=== PATIENT | male | born 1945 | race Caucasian/White ===

== ENCOUNTER 2017-08-24 13:33 | Observation (INO) | payer MEDICARE ==
[~2017-08-24] VITALS: Ht 180.3 cm; Wt 113.0 kg
[2017-08-24 13:57] LABS: BASOPHILS % (AUTO) 0.8 % (0.0-5.0); EOSINOPHILS % (AUTO) 9.1 % (0.0-8.0); HEMATOCRIT 45.2 % (42-54); MEAN CORPUSCULAR HEMOGLOBIN 33.5 pg (27.0-33.0); MEAN CORPUSCULAR VOLUME 93.1 fL (79-99); MONOCYTES % (AUTO) 12.4 % (3.0-13.0); NEUTROPHILS % (AUTO) 54.7 % (40.0-77.0); NUCLEATED RED BLOOD CELLS 0.1 % (0.0-0.19); PLATELET COUNT (AUTO) 275 K/uL (130-400); RED BLOOD CELL COUNT(AUTO) 4.85 MIL/uL (4.50-6.20); RED CELL DISTRIBUTION WIDTH 13.7 % (11.0-15.5); WHITE BLOOD COUNT (AUTO) 6.3 K/uL (4.8-10.8)
[2017-08-24 14:07] LABS: CREATININE 1.4 mg/dL (0.5-1.5); POTASSIUM 4.3 mmol/L (3.5-5.1)
[2017-08-24 14:11] LABS: BILIRUBIN,TOTAL 0.4 mg/dL (0.2-1.0); TOTAL PROTEIN, SERUM 6.8 g/dL (6.0-8.3)
[2017-08-24 14:38] LABS: INR 0.97 (0.85-1.15); PARTIAL THROMBOPLASTIN TIME 23.6 SEC (26.3-35.5); PROTHROMBIN TIME 10.2 SEC (9.6-11.6)
[2017-08-24 17:04] LABS: APPEARANCE,URINE Clear (CLEAR); BILIRUBIN,URINE Negative (NEGATIVE); COLOR,URINE Dark Yellow (YELLOW); GLUCOSE, URINE (UA) Negative (NEGATIVE); KETONES,URINE Trace mg/dL (NEGATIVE); LEUKOCYTE ESTERASE ,URINE Trace (NEGATIVE); NITRATE,URINE Negative (NEGATIVE); OCCULT BLOOD,URINE Negative (NEGATIVE); PH,URINE 6.5 (5.0-8.0); PROTEIN,URINE Negative (NEGATIVE)
[2017-08-24 17:45] LABS: BACTERIA,URINE Rare /HPF (None Seen); RBC,URINE 0-1 /HPF (0-1); SQUAMOUS EPITHELIAL CELL,UR Few /HPF (0-2)
[2017-08-24 17:46] LABS: MUCUS,URINE Rare LPF (None Seen)
[2017-08-25] MEDS ORDERED: ACETAMINOPHEN 325 MG TAB PO PRN (01:45)
[2017-08-25 05:46] LABS: EOSINOPHILS % (AUTO) 8.7 % (0.0-8.0); HEMATOCRIT 44.6 % (42-54); MEAN CORPUSCULAR HEMOGLOBIN 32.9 pg (27.0-33.0); MEAN CORPUSCULAR HGB CONC 34.9 g/dL (32.0-36.0); MEAN CORPUSCULAR VOLUME 94.3 fL (79-99); MONOCYTES % (AUTO) 14.2 % (3.0-13.0); NEUTROPHILS % (AUTO) 51.1 % (40.0-77.0); PLATELET COUNT (AUTO) 258 K/uL (130-400); RED BLOOD CELL COUNT(AUTO) 4.73 MIL/uL (4.50-6.20); RED CELL DISTRIBUTION WIDTH 13.7 % (11.0-15.5); WHITE BLOOD COUNT (AUTO) 6.7 K/uL (4.8-10.8)
[2017-08-25 05:55] LABS: CREATININE 1.4 mg/dL (0.5-1.5); POTASSIUM 3.8 mmol/L (3.5-5.1)
[2017-08-25 06:11] LABS: HEMOGLOBIN A1C 5.7 % (4.0-6.0)
[2017-08-25] MEDS ORDERED: ASPIRIN 325MG EC TAB 325 MG TABLET.DR PO SCH (09:00)
[2017-08-25] MEDS ORDERED: MECLIZINE HCL 25 MG TABLET PO SCH (09:00)
[2017-08-25] MEDS ORDERED: GADOBENATE DIMEGLUMINE 20 ML IV ONE (13:16)
[2017-08-25] MEDS ORDERED: GADOBENATE DIMEGLUMINE 10 ML IV ONE (13:19)
[2017-08-25] MEDS ORDERED: ASPIRIN 325MG EC TAB 325 MG TABLET.DR PO ONE (14:01)
[2017-08-25 15:20] VITALS: BP 150/79
[2017-08-25] MEDS ORDERED: MECLIZINE HCL 25 MG TABLET PO PRN (15:45)
[2017-08-25] MEDS ORDERED: HYDRALAZINE HCL 20 MG/ML VIAL IV PRN (15:45)
[2017-08-25] MEDS: ATORVASTATIN CALCIUM 20 MG TABLET PO SCH (16:30)
[2017-08-25] MEDS ORDERED: DILT120T15 PO (19:54)
[2017-08-25] MEDS ORDERED: ASCO10007 PO (19:54)
[2017-08-25] MEDS ORDERED: OMEP20TA25 PO (19:54)
[2017-08-25] MEDS ORDERED: VITA150T PO (19:54)
[2017-08-25] MEDS ORDERED: FLUT1DIS5 IH (19:54)
[2017-08-25] MEDS ORDERED: ATOR40TA69 PO (19:54)
[2017-08-25] MEDS ORDERED: MULT-1192 PO (19:54)
[2017-08-25] MEDS ORDERED: TIOT18CA3 IH (19:54)
[2017-08-25] MEDS ORDERED: FISH1CAP49 PO (19:55)
[2017-08-25] MEDS ORDERED: UBID300C PO (19:55)
[2017-08-25] MEDS ORDERED: CETI10TA86 PO (19:55)
[2017-08-25 20:36] VITALS: BP 147/78
[2017-08-26 00:03] VITALS: BP 145/65
[2017-08-26 03:41] VITALS: BP 141/78
[2017-08-26] MEDS ORDERED: ASPIRIN 81MG TAB.CHEW PO SCH (09:00)
[2017-08-26 09:23] VITALS: BP 116/64
[2017-08-26] MEDS: ATORVASTATIN CALCIUM 20 MG TABLET PO SCH (10:11)
[2017-08-26] MEDS ORDERED: ASPI-1005 PO (11:40)
[2017-08-26] MEDS ORDERED: MECL-111 PO (11:40)
== END 2017-08-26 14:00 | disposition home or self-care (01) ==
LOC: EDH 13:33 → EDHIP 17:30 → 3DH 08-25 15:02
PROVIDERS: ADMIT Internal Medicine Nephrology; ATTEND Internal Medicine Nephrology
DX: R42 Dizziness and giddiness (principal); R26.0 Ataxic gait; I12.9 Hypertensive chronic kidney disease with stage 1 through stage 4 chronic kidney disease, or unspecified chronic kidney disease; N18.3 Chronic kidney disease, stage 3 (moderate); H11.31 Conjunctival hemorrhage, right eye; E78.5 Hyperlipidemia, unspecified; E66.9 Obesity, unspecified; F10.10 Alcohol abuse, uncomplicated; Z87.891 Personal history of nicotine dependence; Z82.49 Family history of ischemic heart disease and other diseases of the circulatory system
CPT/HCPCS: 36415 ×2; 70450; 70544; 70547; 70553; 71045; 80048; 80053; 80061; 81001; 82550; 83036; 84484; 85025 ×2; 85610; 85730; 93005; 93306; 93880; 99285; A9577; G0378 ×44